=== PATIENT | female | born 1995 | race Caucasian/White ===

== ENCOUNTER → 2018-12-17 | Outpatient (CLI) | payer MEDICAID ==
--- NOTE | 2018-12-18 12:00 | US ---
EXAM DESCRIPTION: Abdomen sonogram,Limited CLINICAL HISTORY: ABDOMIN PAIN R10.11 COMPARISON: None Available. TECHNIQUE: Right upper quadrant ultrasound. Patient is 28 weeks . FINDINGS: Pancreas: Visualized portions of the pancreas are unremarkable. Bowel gas obscures some areas. Aorta/inferior vena cava: No aortic aneurysm. Normal inferior vena cava. Liver: The liver is homogeneous in texture with normal echogenicity of the hepatic parenchyma. No focal liver lesion or intrahepatic bile duct dilatation. No liver surface irregularity. Normal appearance of the portal vein and hepatic veins. Liver length of 17.3 cm is within normal limits. Gallbladder: Gallbladder appears normal with no intraluminal stones or wall thickening. Common bile duct: Normal caliber measuring 2.4 mm. Right kidney: Renal length is 11.9 cm. Normal cortical echogenicity. Cortical thickness is normal. Hydronephrosis is noted with a large renal pelvis and intrarenal collecting system. The point of obstruction is indeterminate. On the transverse image, renal pelvis is distended up to 3.1 cm. There is calyceal dilatation. No renal mass or shadowing calculus. Left kidney measures 11.1 cm in length with left-sided hydronephrosis. Patient is and hydronephrosis may be related to pressure on the distal ureters by the gravid uterus, progesterone effect or both. Clinical correlation recommended as to whether this should be further evaluated. IMPRESSION: Bilateral hydronephrosis. See above. Electronically signed by: Russ Bush MD 12/18/2018 11:58 AM CDT
== END ==
LOC: LAB.O 15:43
PROVIDERS: ATTEND Obstetrics & Gynecology
DX: M94.0 Chondrocostal junction syndrome [Tietze] (principal); N13.30 Unspecified hydronephrosis